=== PATIENT | male | born 1990 | race African-American/Black ===

== ENCOUNTER 2019-12-19 10:47 | Emergency (ER) | payer OTHER ==
[~2019-12-19] VITALS: Ht 188 cm; Wt 72.6 kg
[2019-12-19 11:02] VITALS: BP 134/72
== END 2019-12-19 11:38 | disposition home or self-care (01) ==
LOC: ER 10:52
DX: B07.8 Other viral warts (principal); F17.200 Nicotine dependence, unspecified, uncomplicated; Z98.890 Other specified postprocedural states; Z91.048 Other nonmedicinal substance allergy status

== ENCOUNTER 2020-07-06 11:52 | Emergency (ER) | payer OTHER ==
[~2020-07-06] VITALS: Ht 182.9 cm; Wt 85.7 kg
[2020-07-06 11:56] VITALS: BP 136/88
--- NOTE | 2020-07-06 11:58 | NUR ---
Dr. [place] at bedside for eval.
--- NOTE | 2020-07-06 12:10 | NUR ---
Patient discharged to home in stable condition. Written and verbal after care instructions given. Patient verbalizes understanding of instruction.
== END 2020-07-06 12:10 | disposition home or self-care (01) ==
LOC: ER 11:52
DX: S46.212A Strain of muscle, fascia and tendon of other parts of biceps, left arm, initial encounter (principal); F17.200 Nicotine dependence, unspecified, uncomplicated; Z98.890 Other specified postprocedural states; Z91.048 Other nonmedicinal substance allergy status; X50.0XXA Overexertion from strenuous movement or load, initial encounter; Y93.89 Activity, other specified; Y92.89 Other specified places as the place of occurrence of the external cause; Y99.8 Other external cause status

== ENCOUNTER 2022-08-23 15:59 | Emergency (ER) | payer OTHER ==
[~2022-08-23] VITALS: Ht 188 cm; Wt 81.6 kg
--- NOTE | 2022-08-23 16:40 | NUR ---
TO ER 15, NO APPARENT CHANGE IN CONDITION
[2022-08-23] MEDS ORDERED: KETOROLAC TROMETHAMINE INJ 60 MG/2 ML VIAL IM ONE (17:30)
[2022-08-23] MEDS ORDERED: IBUP-1955 PO (19:17)
[2022-08-23] MEDS ORDERED: HYDR-3976 PO (19:25)
[2022-08-23] MEDS ORDERED: KETOROLAC TROMETHAMINE INJ 30 MG/ML VIAL ONE (19:26)
--- NOTE | 2022-08-23 19:35 | NUR ---
SPLINT APPLIED TO R HAND
--- NOTE | 2022-08-23 19:37 | NUR ---
Patient discharged to home in stable condition. RX Written and verbal after care instructions given. Patient verbalizes understanding of instruction.
[2022-08-23 19:41] VITALS: BP 118/70
== END 2022-08-23 19:53 | disposition home or self-care (01) ==
LOC: ER 16:00
DX: G56.21 Lesion of ulnar nerve, right upper limb (principal); M77.21 Periarthritis, right wrist; F17.200 Nicotine dependence, unspecified, uncomplicated; Z98.890 Other specified postprocedural states; Z79.899 Other long term (current) drug therapy; Z91.013 Allergy to seafood
CPT/HCPCS: 99284; 29125; 73080; 73090; 73130; 96372; J1885